=== PATIENT | female | born 1990 | race Caucasian/White ===

== ENCOUNTER 2017-10-07 11:49 | Emergency (ER) | payer OTHER ==
[~2017-10-07] VITALS: Ht 165.1 cm; Wt 61.2 kg
--- NOTE | 2017-10-07 22:50 | EKG ---
[facility] [address] [facility] [place], [place] [address] Signed Sinus tachycardia Otherwise normal ECG When compared with ECG of 07-OCT-2017 11:53, (Unconfirmed) No significant change was found Confirmed by CHRISTIANO BURDEN MD ([id number]) on 10/07/2017 10:49:54 PM Electronically Signed By: CHRISTIANO BURDEN MD 10/07/17 2250 PATIENT NAME: LUIS ARNOLD Electrocardiogram DATE OF : 86 PHYSICIAN: CHRISTIANO BURDEN MD REPORT #: [id number] REPORT IS CONFIDENTIAL AND NOT TO BE RELEASED WITHOUT AUTHORIZATION
== END 2017-10-07 13:49 | disposition home or self-care (01) ==
LOC: ED 11:49
DX: R07.9 Chest pain, unspecified (principal); Z91.018 Allergy to other foods
CPT/HCPCS: 36415; 80053; 84484; 85025; 93005; 93010; 99284

== ENCOUNTER 2018-07-12 18:57 | Emergency (ER) | payer OTHER ==
[~2018-07-12] VITALS: Ht 165.1 cm; Wt 61.2 kg
== END 2018-07-12 21:23 | disposition home or self-care (01) ==
LOC: ED 18:57
DX: R41.82 Altered mental status, unspecified (principal); F41.9 Anxiety disorder, unspecified; Z87.891 Personal history of nicotine dependence; Z91.018 Allergy to other foods
CPT/HCPCS: 80053; 81001; 84703; 85025; 87077; 87088; 87186; 99285; G0480

== ENCOUNTER 2022-02-08 00:03 | Inpatient (IN) | payer OTHER ==
[~2022-02-08] VITALS: Ht 162.6 cm; Wt 71.7 kg
--- NOTE | ~2022-02-08 | OR ---
[facility] [address] [place], [place] [address] Draft DATE OF OPERATION: 02/08/2022 SURGEON: Haritha Steel DO PROCEDURE: Primary low-transverse . PREOPERATIVE DIAGNOSES: 39 weeks gestation, substance use disorder, hep C antibody positive, HSV history, anxiety, depression, post-traumatic stress disorder, maternal exhaustion and maternal request for . POSTOPERATIVE DIAGNOSES: 39 weeks gestation, substance use disorder, hep C antibody positive, HSV history, anxiety, depression, post-traumatic stress disorder, maternal exhaustion and maternal request for , and asynclitic presentation. ANESTHESIA: Epidural. DIRECTOR INTERNAL AUDIT: Dr. Bravo. ESTIMATED BLOOD LOSS: 700 mL. COMPLICATIONS: None. FINDINGS: Normal-appearing uterus, bilateral tubes and ovaries. Viable term male , Celestine, Apgars 9 and 9 at 1 and 5 minutes respectively. Weight 7 pounds 9 ounces, 3440 g, right occiput anterior positioning. INDICATIONS: The patient is a 31-year-old, G3, P-0-0-2-0, who presented this morning as scheduled for elective induction of labor. She is 1-1/2 inch cm upon arrival and renny irregularly and infrequently. She received Cytotec x2 and experienced spontaneous rupture of membranes at 7:30, rupture of residual bag was performed yielding moderate amount of clear fluid. She then progressed rapidly to 6 cm, received an epidural for PATIENT NAME: LUIS ARNOLD OPERATIVE REPORT DATE OF : 86 REPORT #: [id number] PHYSICIAN: HARITHA STEEL DO PCP: NO PRIMARY CARE PHYSICIAN REPORT IS CONFIDENTIAL AND NOT TO BE RELEASED WITHOUT AUTHORIZATION [facility] [address] [place], [place] [address] Draft pain management, and continued to progress quickly to complete. At this point, baby was having early decelerations, but began to have a prolonged deceleration and decision was made to begin pushing. The patient was positioned in the dorsal lithotomy and began pushing with initial improvement in heart tones after receiving terbutaline. heart tones improved most significantly and returned to category 1 when she was in hands and knees positioning, she did rotate through other positions including dorsal lithotomy and right and left lateral before returning to hands and knees. She began to request delivery for maternal exhaustion, but continued to push with strong effort until she stated "what are you waiting for my baby to ," after which point maternal expulsive effort was notably weaker. Risks, benefits, and alternatives to including infection, bleeding, damage to surrounding structures, difficult extraction, and hysterotomy extension were discussed. The patient repeatedly and strongly verbalized preference for delivery. Consents were signed. PROCEDURE IN DETAIL: The patient was taken to the operating room, where she was given 2 g Ancef and 500 mg azithromycin. Barksdale catheter was placed and she was positioned in supine position with a leftward tilt. She was prepped and draped including a vaginal prep in the normal sterile fashion. Epidural was bolused and confirmed to be adequate. A Pfannenstiel incision was made with a scalpel and carried through the underlying layer of fascia with Bovie cautery. Fascia was incised at midline and extended laterally with Catherine scissors, was then grasped with Sheridan clamps, elevated, and the inferior margin was dissected off the rectus muscle, this was released. Then, the superior margin was grasped with Sheridan's, elevated and underlying rectus muscles dissected off. The perineum was entered bluntly and incision was extended sharply with Catherine scissors superiorly and inferiorly with gentle traction. Jan retractor was placed. Hysterotomy was made with a scalpel and 's head was elevated to the level of the hysterotomy without significant difficulty taking care to maintain flexion of the head. Head, anterior and posterior shoulder and remainder of body were delivered easily and the baby gave a strong loud spontaneous cry upon delivery. Cord was doubly clamped and cut. Cord segment was set aside for cord gases and cord blood was collected for type and José Antonio. Placenta was delivered manually. The uterus was cleared of clots and debris and stay suture of 0 Monocryl was placed at the right apex. Hysterotomy was closed in 2 layers, 1st with a running locked fashion with 0 Monocryl and 2nd in an imbricating manner also with 0 Monocryl with resulting hemostasis. Dashawn was applied primarily inferiorly to the hysterotomy after the pelvis was suction irrigated with warm sterile saline and uterus, tubes, and ovaries were inspected with normal findings as noted above. The peritoneum was closed with 2-0 Vicryl in a running fashion. Rectus muscle was reapproximated at midline with 0 Vicryl in simple interrupted fashion. Perforating vessels were cauterized with Bovie cautery with excellent hemostasis noted. Rectus was suction irrigated with warm sterile saline and again hemostasis was noted. Fascia was closed with 0 Vicryl to sever stitches, first working from right apex to midline in a PATIENT NAME: LUIS ARNOLD OPERATIVE REPORT DATE OF : 86 REPORT #: [id number] PHYSICIAN: HARITHA STEEL DO PCP: NO PRIMARY CARE PHYSICIAN REPORT IS CONFIDENTIAL AND NOT TO BE RELEASED WITHOUT AUTHORIZATION [facility] [address] [place] [address] Draft running fashion, second from left apex to midline in the running fashion meeting in the middle. Subcutaneous layer was inspected for perforating vessels, which were cauterized with Bovie cautery, was suction irrigated with warm sterile saline. Again hemostasis was noted. This was reapproximated with 3-0 Vicryl in a running fashion. Skin was closed with skin clips. Sponge and instrument counts were correct x2. The patient was taken to recovery in stable and satisfactory condition. Haritha Steel DO EMZ/MODL /[id number] Copies: ~ PATIENT NAME: LUIS ARNOLD OPERATIVE REPORT DATE OF : 86 REPORT #: [id number] PHYSICIAN: HARITHA STEEL DO PCP: NO PRIMARY CARE PHYSICIAN REPORT IS CONFIDENTIAL AND NOT TO BE RELEASED WITHOUT AUTHORIZATION
[2022-02-08] MEDS ORDERED: ATIVAN1 MG PO (01:13)
[2022-02-08] MEDS ORDERED: BUPRENORPHINE HC8 MG SL (01:16)
[2022-02-08] MEDS ORDERED: ACYCLOVIR400 MG PO (08:06)
--- NOTE | 2022-02-08 14:33 | PR ---
[facility] [place] [facility] [address] [place], [place] [address] Signed Progress Notes IP Datetime Report Generated by CPN: 02/08/2022 14:33 PROGRESS NOTES: [id number] Plan: Deliver- Section Informed Consent Obtain: Section Delivery VITAL SIGNS: [id number] Vital Signs: Reviewed; Within Normal Limits EXAM: [id number] Dilatation: 6.0 Effacement: 95 Station: 0 Contractions: q2-3.5 min MEMBRANES: [id number] Membranes Status: Ruptured Comments: Progressed well, began pushing. heart rate decelerations which resolved in hands and knees positioning. However, after 2.5 hours of pushing mother is requesting delivery and no longer pushing with the same effort. Risks, benefits, alternatives were discussed and patient elected to proceed with delivery. FETUS A: [id number] FHR Baseline: 115 Variability: Moderate 6-25bpm Accelerations: 15X15 Decelerations: None FHR Category: Category I Presentation: Vertex Comments on Fetus A: No evidence of acidemia FETUS B: [id number] Signing Physician: Haritha Steel DO Copies: ~ *Electronically Signed* 02/08/22 1433 HARITHA STEEL DO PATIENT NAME: LUIS ARNOLD PROGRESS NOTE DATE OF : [birth year] PHYSICIAN: HARITHA STEEL #: [id number] REPORT IS CONFIDENTIAL AND NOT TO BE RELEASED WITHOUT AUTHORIZATION
--- NOTE | 2022-02-09 07:38 | PR ---
[facility] [address] [facility] [place], [place] [address] Signed PP Progress Notes Datetime Report Generated by CPN: 02/09/2022 07:38 SUBJECTIVE: [id number] Pain: Within Normal Limits Nausea/Vomiting: Denies Flatus: No Bowel Movement: No Vital Signs: [id number] Vital Signs: Reviewed; Within Normal Limits EXAM: Ongoing Cardiovascular: Normal Respiratory: Normal Abdomen/Uterus: Normal Lochia: Normal Breasts: Normal Extremities: Normal Incision: Normal Progress: Normal IMPRESSION/PLAN/PROCEDURES: [id number] Impression: Normal Progression Plan: Continue Present Management Progress Notes: Pt is a 31 yo POD #1 s/p PLTCS Signing Physician: Haritha Steel DO Copies: ~ *Electronically Signed* 02/09/22 0738 HARITHA STEEL DO PATIENT NAME: LUIS ARNOLD PROGRESS NOTE DATE OF : [birth year] PHYSICIAN: HARITHA STEEL DO RPT #: [id number] REPORT IS CONFIDENTIAL AND NOT TO BE RELEASED WITHOUT AUTHORIZATION
--- NOTE | 2022-02-10 11:49 | PR ---
[facility] [address] [place], [place] [address] Signed PP Progress Notes Datetime Report Generated by CPTiki: 02/10/2022 11:49 SUBJECTIVE: [id number] Pain: Abnormal Nausea/Vomiting: Denies Flatus: Yes Bowel Movement: No Vital Signs: [id number] Vital Signs: Reviewed; Within Normal Limits EXAM: Ongoing Cardiovascular: Normal Respiratory: Normal Abdomen/Uterus: Normal Lochia: Normal Breasts: Normal Extremities: Normal Incision: Normal Progress: Normal Exam Comments: General: standing at bedside Lungs: no dyspnea/ retractions CV: RRR Abd: SNTND, Incision c/d/i Ext: Trace edema IMPRESSION/PLAN/PROCEDURES: [id number] Impression: Normal Progression; Pain Plan: Continue Present Management Other Plans: Anesthesia consult - TAP blocks Progress Notes: Pt is a 31 yo POD#2 s/p PLTCS -progressing well postop/ -pain increasing, pain mgmt options limited due to buprenorphine -hgb 9.1 POD#1 from 10.1 on admission Plan: -repeat TAP blocks -anticipate DC to home tomorrow am Signing Physician: Haritha Steel DO *Electronically Signed* 02/10/22 1149 HARITHA STEEL DO PATIENT NAME: LUIS ARNOLD PROGRESS NOTE DATE OF : 86 PHYSICIAN: HARITHA STEEL DO RPT #: [id number] REPORT IS CONFIDENTIAL AND NOT TO BE RELEASED WITHOUT AUTHORIZATION [facility] [address] [place], [place] [address] Signed Copies: ~ *Electronically Signed* 02/10/22 1149 HARITHA STEEL DO PATIENT NAME: LUIS ARNOLD PROGRESS NOTE DATE OF : [birth year] PHYSICIAN: HARITHA STEEL DO RPT #: [id number] REPORT IS CONFIDENTIAL AND NOT TO BE RELEASED WITHOUT AUTHORIZATION
--- NOTE | 2022-02-11 15:30 | PR ---
[facility] [address] [place], [place] [address] Signed PP Progress Notes Datetime Report Generated by CPN: 02/11/2022 15:30 SUBJECTIVE: [id number] Pain: Within Normal Limits Nausea/Vomiting: Denies Flatus: Yes Bowel Movement: No Vital Signs: [id number] Vital Signs: Reviewed; Within Normal Limits EXAM: Met Cardiovascular: Normal Respiratory: Normal Abdomen/Uterus: Normal Lochia: Normal Breasts: Normal Extremities: Normal Incision: Normal Progress: Normal Exam Comments: General: NAD, standing at bedside Lungs: no dyspnea/ retractions CV: RRR Abd: SNTND, binder in place, incision c/d/i with ian in place Skin: multiple tattoos Ext: trace edema IMPRESSION/PLAN/PROCEDURES: [id number] Impression: Normal Progression Plan: Continue Present Management; Discharge Other Plans: Anesthesia consult - TAP blocks Progress Notes: 31 yo POD#3 s/p PLTCS -progressing well postop: VSS, ambulating/ voiding/ tolerating regular diet, pain controlled with orals, lochia light -BERYL: stable on buprenorphine, no opioids administered -Anemia: continue oral iron -Ian to be removed prior to baby discharge, mom to be discharged to boarder status today -Outpatient follow-up in 1 week, pumping and trying to breastfeed, planning pill for contraception Signing Physician: Haritha Steel DO *Electronically Signed* 02/11/22 7100 HARITHA STEEL DO PATIENT NAME: ULIS ARNOLD PROGRESS NOTE DATE OF : 86 PHYSICIAN: HARITHA STEEL DO RPT #: [id number] REPORT IS CONFIDENTIAL AND NOT TO BE RELEASED WITHOUT AUTHORIZATION [address], [place] [address] Signed Copies: ~ *Electronically Signed* 02/11/22 1530 HARITHA STEEL DO PATIENT NAME: LUIS ARNOLD PROGRESS NOTE DATE OF : [birth year] PHYSICIAN: HARITHA STEEL DO RPT #: [id number] REPORT IS CONFIDENTIAL AND NOT TO BE RELEASED WITHOUT AUTHORIZATION
== END 2022-02-11 17:00 | disposition home or self-care (01) | DRG 787 ==
LOC: FBC 00:03
PROVIDERS: ADMIT Obstetrics & Gynecology; ATTEND Obstetrics & Gynecology
PROC: 10D00Z1 Extraction of Products of Conception, Low, Open Approach (ICD-10-PCS; principal; 2022-02-08 14:52)
DX: O99.324 Drug use complicating childbirth (principal); O98.32 Other infections with a predominantly sexual mode of transmission complicating childbirth; O99.344 Other mental disorders complicating childbirth; F19.90 Other psychoactive substance use, unspecified, uncomplicated; F41.9 Anxiety disorder, unspecified; F32.A Depression, unspecified; F43.10 Post-traumatic stress disorder, unspecified; O75.81 Maternal exhaustion complicating labor and delivery; Z3A.39 39 weeks gestation of pregnancy; Z37.0 Single live birth; Z86.19 Personal history of other infectious and parasitic diseases; O32.8XX0 Maternal care for other malpresentation of fetus, not applicable or unspecified; A60.00 Herpesviral infection of urogenital system, unspecified; O76 Abnormality in fetal heart rate and rhythm complicating labor and delivery; O90.81 Anemia of the puerperium
CPT/HCPCS: 01961; 36415; 82803; 85027; 86850; 86900; 86901; A9270; J0171; J0456; J0690; J1100; J1790; J1885; J2001; J2405; J2550; J2590; J2795; J3010; J3105; J7121